=== PATIENT | male | born 1975 | race American Indian/Alaskan Native ===

== ENCOUNTER 2018-01-01 08:28 | Outpatient (CLI) | payer OTHER ==
[2018-01-01 08:44] LABS: Hemoglobin 10.4 gm/dl (11.8-15.2); Mean Corpuscular HGB Conc 33 % (32-34); Mean Corpuscular Hemoglobin 30 pg (28-32); Mean Corpuscular Volume 89 fl (84-94); Platelet Count 218 K/mm3 (140-440); Red Cell Distribution Width 14.2 % (13.2-15.2)
[2018-01-01 09:08] LABS: Albumin 3.7 g/dL (3.9-5); Calcium 8.9 mg/dL (8.4-10.2)
== END 2018-01-01 08:29 | disposition home or self-care (01) ==
LOC: LAB 08:28
PROVIDERS: ATTEND Internal Medicine Nephrology
DX: I10 Essential (primary) hypertension (principal); E78.5 Hyperlipidemia, unspecified; R94.4 Abnormal results of kidney function studies; R60.0 Localized edema; R80.9 Proteinuria, unspecified
CPT/HCPCS: 36415; 80048; 82040; 84100; 85027

== ENCOUNTER 2020-09-04 16:49 | Emergency (ER) | payer MEDICARE, OTHER ==
[2020-09-04 16:58] VITALS: BP 173/101
--- NOTE | 2020-09-04 17:13 | Emergency Department Report ---
Chief Complaint: Medical Clearance Stated Complaint: KNOT IN FISTULA Time Seen by Provider: 09/04/20 17:11 - HPI History of Present Illness: Patient is a 45-year-old male presents emergency room with complaints of left arm pain that began 1 hour ago. He states the pain is worse with extending the wrist. He states the pain is in the forearm. Patient has a fistula in the left arm but has not had to use it for dialysis for 8 months. He states he was taken off dialysis. He is a kidney transplant recipient. Patient denies any arm swelling, numbness, fever, drainage, redness. No other past medical history. No allergies medications. vss on exam: There is a fistula present to the left forearm with good thrill, strong 2+ radial pulse, cap refill is brisk less than 2 seconds, skin is warm, dry, intact, no increased warmth, no erythema, no edema, sensation is intact, neurovascularly intact, patient has pain in the forearm muscles upon flexion of the wrist Symptoms likely related to a mild muscle strain No clinical signs of arterial occlusion or DVT or cellulitis Patient evaluated by Dr. Sherwin Mills, ER attending who agrees with discharge home and vascular surgery follow-up advised pt May take Tylenol as needed for discomfort. May use ice pack for 15 minutes at a time, elevation of the arm. Follow-up with your vascular surgeon. Return to emergency room immediately for any new or worsening symptoms. Medical screening examination performed and there is no threat to life or limb at this time - Exam Vital Signs: Vital Signs 09/04/20 16:57 Temperature 98.0 F Pulse Rate 85 Respiratory 22 Rate Blood Pressure 173/101 O2 Sat by Pulse 96 Oximetry MSE screening note: Focused history and physical exam performed. ED Disposition for MSE Clinical Impression: Arm pain Qualifiers: Laterality: left Qualified Code(s): M79.602 - Pain in left arm Disposition: Z-07 MED SCREENING EXAM-LEFT Is pt being admited?: No Does the pt Need Aspirin: No Condition: Stable Additional Instructions: May take Tylenol as needed for discomfort. May use ice pack for 15 minutes at a time, elevation of the arm. Follow-up with your vascular surgeon. Return to emergency room immediately for any new or worsening symptoms. Referrals: your, vascular surgeon [Other] - 2-3 Days Time of Disposition: 17:12 Print Language: CANADI[place]
== END 2020-09-04 17:30 | disposition left against medical advice (07) ==
LOC: ED 16:49
DX: M79.602 Pain in left arm (principal); Z53.21 Procedure and treatment not carried out due to patient leaving prior to being seen by health care provider